=== PATIENT | female | born 1990 | race African-American/Black ===

== ENCOUNTER 2017-01-27 11:23 | Emergency (ER) | payer SELFPAY ==
[~2017-01-27] VITALS: Ht 162.6 cm; Wt 85.0 kg
[~2017-01-27 11:23] MED LIST: PENI500T PO; TRAM50 PO
[2017-01-27 11:26] VITALS: BP 172/105; PULSE 108; RESP 13; TEMP 98.6; O2SAT 99
--- NOTE | 2017-01-27 12:02 | PD ---
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 Patient reports 3 days ago she noticed light vaginal spotting when she straining having a bowel movement. She had another episode of spotting this morning prompting her visit. She reports the spotting has small amount of bright red blood on the toilet paper when she wiped her vagina. She reports urinary frequency without dysuria. She denies abdominal pain. She denies vaginal discharge. She denies changes in bowels or bloody/dark stools. LMP 01/14/17. She is sexually active and not currently using any protection. She believes she is in a monogamous relationship. PFSH Past Medical History Medical History: Denies Significant Hx ?: Not LMP: 01/14/17 Social History Tobacco Use: No Allergies-Medications (Allergen,Severity, Reaction): Coded Allergies: Sulfa (Sulfonamide Antibiotics) (Unverified Allergy, Severe, 01/27/17) Reported Meds & Prescriptions Reported Meds & Active Scripts Active No Active Prescriptions or Reported Medications Review of Systems Except as stated in HPI: all other systems reviewed are Neg Physical Exam Narrative GENERAL: Well-nourished, well-developed patient. SKIN: Focused skin assessment warm/dry. HEAD: Normocephalic. EYES: No scleral icterus. No injection or drainage. NECK: Supple, trachea midline. No JVD or lymphadenopathy. CARDIOVASCULAR: Regular rate and rhythm without murmurs, gallops, or rubs. RESPIRATORY: Breath sounds equal bilaterally. No accessory muscle use. GASTROINTESTINAL: Abdomen soft, non-tender, nondistended. : External genitalia without lesions. Normal noninfectious appearing vaginal discharge in the vault. Cervical os closed. No cervical friability. No CMT. No adnexal mass or tenderness. MUSCULOSKELETAL: No cyanosis, or edema. BACK: Nontender without obvious deformity. No CVA tenderness. Data Data Last Documented VS Vital Signs Date Time Temp Pulse Resp B/P (MAP) Pulse Ox O2 Delivery O2 Flow Rate FiO2 01/27/17 11:50 18 01/27/17 11:26 98.6 108 172/105 (127) 99 Orders Orders Gc And Chlamydia Pcr (01/27/17 12:03) Wet Prep Profile (01/27/17 12:03) Urinalysis - C+S If Indicated (01/27/17 12:03) Ed Urine Pregnancytest Poc (01/27/17 12:07) Labs Laboratory Tests Test 01/27/17 12:10 Urine Color LIGHT-YELLOW Urine Turbidity CLEAR Urine pH 7.0 Urine Specific [place] 1.009 Urine Protein NEG mg/dL Urine Glucose (UA) NEG mg/dL Urine Ketones NEG mg/dL Urine Occult Blood NEG Urine Nitrite NEG Urine Bilirubin NEG Urine Urobilinogen LESS THAN 2.0 MG/DL Urine Leukocyte Esterase NEG Urine RBC 2 /hpf Urine WBC 2 /hpf Urine Squamous Epithelial Cells 1 /hpf Urine Mucus FEW /lpf Microscopic Urinalysis Comment CULT NOT INDICATED Clue Cells (Wet Prep) NONE SEEN Vaginal Trichomonas (Wet Prep) NONE SEEN Vaginal Yeast (Wet Prep) NONE SEEN MDM Medical Decision Making Medical Screen Exam Complete: Yes Emergency Medical Condition: Yes Interpretation(s) Urine : Negative UA: Negative for infection Wet prep: Negative for Trichomonas, negative for yeast cells, negative for clue cells GC chlamydia: Pending Differential Diagnosis UTI, CERVICITIS, ECTOPIC, DYSFUNCTIONAL UTERINE BLEEDING Narrative Course 26 year old female here for evaluation of 2 episodes of vaginal spotting. She reports the episodes as small amount of bright red blood from the vagina while straining having a bowel movement. She denies abdominal pain, dysuria, vaginal discharge, changes in bowel habits. Patient is well-appearing and nontoxic. Her pelvic exam is essentially benign. Urine : Negative UA: Negative for infection Wet prep: Negative for Trichomonas, negative for yeast cells, negative for clue cells GC chlamydia: Pending Patient's physical exam and labs do not indicate infection. Patient declines empiric a treatment for possible STD. Patient advised to follow up with her OB/ MILIT[employer] PERSONNEL SPECIALIST this week. Return precautions discussed. Patient verbalizes understanding and agrees to plan. Diagnosis Primary Impression: Uterine bleeding, dysfunctional Referrals: Hatch Supervisor Additional Instructions: Make an appointment for follow-up with her MILITARY PERSONNEL SPECIALIST. Return to emergency department if he developed new or worsening symptoms such as abdominal pain, severe vaginal bleeding, fever chills, or any new concerning symptoms. Scripts No Active Prescriptions or Reported Meds Disposition: DISCHARGE HOME Condition: Stable Milagros Manley Jan 27, 2017 12:02
[2017-01-27 12:35] LABS: BILIRUBIN, URINE NEG (NEG); BLOOD, URINE NEG (NEG); GLUCOSE,URINE NEG (NEG); KETONE, URINE NEG (NEG); MUCUS URINE FEW /lpf (OCC); NITRITE,URINE NEG (NEG); SQUAMOUS EPITHELIAL CELL URINE 1 /hpf (0-5); URINE COLOR LIGHT-YELLOW (YELLW/STRAW); URINE LEUKOCYTE ESTERASE NEG (NEG)
== END 2017-01-27 13:47 | disposition home or self-care (01) ==
LOC: NEPD 11:23
DX: N93.8 Other specified abnormal uterine and vaginal bleeding (principal); Z88.2 Allergy status to sulfonamides
CPT/HCPCS: 81001; 84703; 87210; 87491; 87591; 99284